=== PATIENT | female | born 1950 | race Caucasian/White ===

== ENCOUNTER 2025-03-02 10:32 | Inpatient (IN) ==
[2025-03-02 11:25] LABS: Hematocrit (blood only) 39.9 % (37.0-47.0); Hemoglobin 13.8 g/dl (12.0-16.0); Immature Granulocytes # (auto) 0.01 K/uL (0.01-0.20); Immature Granulocytes % (auto) 0.3 %; Mean Corpuscular Hemoglobin 33.6 pg (25.0-34.0); Mean Corpuscular Volume 97.1 fL (80.0-100.0); Platelet Count 90 K/uL (130-400); RDW Standard Deviation 54.4 fL (36.4-46.3); Red Blood Count 4.11 M/uL (4.20-5.40); White Blood Count 4.00 K/ul (4.8-10.8)
[2025-03-02 11:30] LABS: Appearance Urine Clear (Clear); Glucose Urine UA Negative (Negative)
[2025-03-02 11:45] LABS: Alanine Aminotransferase 25.0 U/L (7-52); Alkaline Phosphatase 106.0 U/L (34-104); Anion Gap 6.0 (3-11); Bilirubin,Total 1.5 mg/dl (0.2-1.0); Blood Urea Nitrogen 17.0 mg/dl (6-23); Calcium 9.4 mg/dl (8.6-10.3); Carbon Dioxide 28.0 mmol/L (21-32); Chloride 108.0 mmol/L (98-107); Creatinine Clr Calc Pharmacy 75.3 ml/min; Glucose 127.0 mg/dl (70-99(Fasting)); Lipase 43.0 U/L (11-82); Potassium 3.9 mmol/L (3.5-5.1); Sodium 142.0 mmol/L (136-145); Total Protein 7.0 gm/dl (6.0-8.3)
[2025-03-02 11:54] LABS: INR 1.1 (0.9-1.1); Partial Thromboplastin Time 30 Seconds (21-31); Prothrombin Time 11.7 Seconds (9.0-12.0)
--- NOTE | 2025-03-02 14:07 | CT Scan Report ---
CT head/brain wo con CLINICAL HISTORY: 74 years-old Female with dififculty walking. Acutely altered mental status TECHNIQUE: Multiple axial CT images of the head were obtained without contrast. A dose lowering tech nique was utilized adhering to the principles of ALARA. CT DOSE: 703.85 mGy.cm COMPARISON: 06/07/2022, 09/20/2015 FINDINGS: No acute intracranial hemorrhage, midline shift, intra-axial mass, hydrocephalus, territorial ischemi a or abnormal extra-axial collection. Patchy white matter hypodensities redemonstrated, likely repres enting chronic microvascular ischemic disease. Prominent CSF space versus arachnoid cyst is again not ed below the cerebellar tentorium at the midline. The calvarium is intact. Moderate mucoperiosteal thickening with slight loss of the maxillary sinuse s. The mastoid air cells are clear. IMPRESSION: No acute intracranial abnormality. ACT 112: Negative or not required by law. The above report was generated using voice recognition software. It may contain grammatical, syntax o r spelling errors. Electronically signed by: Amrik Smith M.D. 03/02/2025 2:05 PM
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
[2025-03-02] MEDS: LACTULOSE SYRUP 20 GM/30 ML UDC PO STA (15:23)
[2025-03-02] MEDS: OPTIRAY 320 100ml IV ONE (16:26)
--- NOTE | 2025-03-02 16:39 | CT Scan Report ---
EXAMINATION: CT of the abdomen and pelvis performed after the administration of IV contrast TECHNIQUE: Helical CT images from the lung bases through the symphysis pubis were obtained with contrast. Coronal and sagittal reformatted images were generated at a workstation for further assessment. Dose reduction techniques were achieved by using automatic exposure control and/or adjustment of mA and/or kV according to patient size and/or use of iterative reconstruction technique. COMPARISON: 06/07/2022 HISTORY: Abdominal pain FINDINGS: Lower chest: No consolidation. No pleural effusion or pneumothorax. Moderate coronary calcification is seen. Liver: Nodular contour of the liver with hypertrophy of the left and caudate lobes compatible with cirrhosis. The portal vein is enlarged, and there is recanalization with significant dilation of the periumbilical vein, which drains in to several varicosities draining into the right external iliac vein. No suspicious liver lesions. Portal veins appear patent. Gallbladder: Cholecystectomy. Spleen: Enlarged spleen measuring 17.4 cm. Pancreas: No suspicious pancreatic lesions. The pancreatic duct is not dilated. Adrenal glands: No adrenal nodules. Kidneys: No hydronephrosis or obstructing renal stones. Bladder / Pelvic organs: Zimmerman catheter in place decompressing the urinary bladder.. Bowel: No bowel obstruction. No abnormal bowel wall thickening. The appendix is unremarkable. Colonic stool burden is moderate to large. Lymph nodes: No retroperitoneal, mesenteric, or pelvic lymphadenopathy. Peritoneum / Retroperitoneum: No free fluid or air within the abdomen. Vessels: No infrarenal aortic aneurysm. Bones and soft tissues: No suspicious lesion in the bones. Fixation changes of the right femur. IMPRESSION: No acute intra-abdominal process. Moderate to large colonic stool suggesting constipation. Cirrhosis of the liver with evidence of portal hypertension as above. Electronically signed by Pablito Warren 03-02-2025 4:38 PM
--- NOTE | 2025-03-02 17:08 | Ultrasound Report ---
Clinical History: Swelling Technique: Venous ultrasound evaluation was performed utilizing grayscale, color Doppler and wave form evaluation. Images were also obtained with and without compression Findings: The bilateral common femoral, superficial femoral, popliteal, and visualized calf veins demonstrate normal anechoic lumens with full compressibility. Normal flow is seen on color Doppler images. Expected waveforms were produced with augmentation maneuvers Impression: No evidence of deep venous thrombosis Electronically signed by Migel Fontaine 03-02-2025 5:08 PM
[2025-03-02] MEDS ORDERED: POLYETHYLENE (MIRALAX) 17 GM PACK PO PRN (17:32)
[2025-03-02] MEDS ORDERED: MAGNESIUM HYDROXIDE SUSP 30 ML UDC PO PRN (17:32)
[2025-03-02] MEDS ORDERED: ONDANSETRON INJ 2 MG/ML 2 ML VIAL IV PRN (17:32)
[2025-03-02] MEDS ORDERED: GLUCAGON FOR INJ 1 MG VIAL SQ PRN (17:45)
[2025-03-02] MEDS ORDERED: GLUCOSE 40% GEL 15 GM TUBE PO PRN (17:45)
[2025-03-02] MEDS ORDERED: DEXTROSE 50% 50 ML SYRINGE IV PRN (17:45)
[2025-03-02] MEDS ORDERED: CARBOHYDRATES FOR HYPOGLYCEMIA PO PRN (17:45)
[2025-03-02] MEDS ORDERED: GLUCOSE 10 TAB/TUBE PO PRN (17:45)
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
[2025-03-02] MEDS: DICLOFENAC SOD 1% GEL 100 GM TUBE EXT SCH (20:31)
[2025-03-02] MEDS: DOCUSATE SODIUM 100 MG CAP PO SCH (20:34)
[2025-03-02] MEDS: CALCIUM 600MG + VIT D 400 IU TAB PO SCH (20:34)
[2025-03-02] MEDS: LACTULOSE SYRUP 20 GM/30 ML UDC PO SCH (20:35)
[2025-03-02] MEDS: AMMONIUM LACTATE 12% LOTION 225 GM BTL EXT SCH (20:37)
[2025-03-02] MEDS: INSULIN ASPART PER UNIT CHARGE SC SCH (20:38)
[2025-03-03] MEDS: LEVOTHYROXINE SODIUM 100 MCG TABLET PO SCH (05:55)
[2025-03-03 08:05] LABS: Hematocrit (blood only) 37.1 % (37.0-47.0); Hemoglobin 12.4 g/dl (12.0-16.0); Immature Granulocytes # (auto) 0.01 K/uL (0.01-0.20); Immature Granulocytes % (auto) 0.3 %; Mean Corpuscular Hemoglobin 33.1 pg (25.0-34.0); Mean Corpuscular Volume 98.9 fL (80.0-100.0); Platelet Count 73 K/uL (130-400); RDW Standard Deviation 55.8 fL (36.4-46.3); Red Blood Count 3.75 M/uL (4.20-5.40); White Blood Count 3.09 K/ul (4.8-10.8)
[2025-03-03] MEDS: MAGNESIUM CITRATE 296 ML/BTL PO STA (08:05)
[2025-03-03] MEDS: FLUTICASONE PROPIONATE NA SPR 16 GM BTL SCH (08:10)
[2025-03-03] MEDS: MONTELUKAST SODIUM 10 MG TABLET PO SCH (08:11)
[2025-03-03] MEDS: CHOLECALCIFEROL 25 MCG (1000 UNITS) TAB PO SCH (08:12)
[2025-03-03] MEDS: ROSUVASTATIN CALCIUM 10 MG TAB PO SCH (08:12)
[2025-03-03] MEDS: ATENOLOL 50 MG TABLET PO SCH (08:13)
[2025-03-03 08:27] LABS: Alanine Aminotransferase 23.0 U/L (7-52); Albumin Globulin Ratio 1.3 (0.9-2); Alkaline Phosphatase 80.0 U/L (34-104); Anion Gap 5.0 (3-11); Bilirubin,Total 1.4 mg/dl (0.2-1.0); Blood Urea Nitrogen 14.0 mg/dl (6-23); Calcium 8.8 mg/dl (8.6-10.3); Carbon Dioxide 29.0 mmol/L (21-32); Chloride 109.0 mmol/L (98-107); Creatinine Clr Calc Pharmacy 85.7 ml/min; Globulin 2.6 gm/dl (2.5-4.0); Glucose 100.0 mg/dl (70-99(Fasting)); Magnesium 1.7 mg/dl (1.7-2.4); Potassium 3.6 mmol/L (3.5-5.1); Sodium 143.0 mmol/L (136-145); Total Protein 5.9 gm/dl (6.0-8.3)
[2025-03-03 08:42] LABS: Thyroid Stimulating Hormone 1.171 uIu/ml (0.300-4.500)
--- NOTE | 2025-03-03 09:00 | Urology Consultation ---
Date of Consultation March 03, 2025 Assessment & Plan (1) Acute urinary retention: Patient admitted to the hospitalist service. Her ua was negative and ct scan was negative for hydronephrosis or stones. She does have constipation which is likely the source of her urinary retention. No urological surgery/intervention planned at this time. Continue management of constipation and mobilization per hospitalist service. Once she does begin having bowel movements it is reasonable to remove her markham catheter and try a void trial. Please reach out to urology if any further issues after catheter removal. History of Present Illness Attending Physician: Ralph Mora MD History of Present Illness Wendy is a 74 year old patient admitted last night to the hospitalist service with urinary retention, constipation, and generalized weakness. She states that ever since she underwent surgery for her femur fracture she has had issues with constipation. She came to the ER yesterday due to not having a bowel movement or urinating for 2 days. She did have some abdominal pain but that has been relieved with placement of the markham catheter. Over 400ml of urine drained yesterday with placement of the catheter. Denies any previous urinary symptoms such as hematuria or dysuria, denies h/o kidney stones. Allergies Allergy/AdvReac Type Severity Reaction Status Date / Time Hydantoins Allergy Unknown Unknown - Unverified 03/02/25 14:32 On file w/ [facility] phenytoin Allergy Unknown fever and Verified 03/02/25 14:32 rash indomethacin AdvReac Unknown CHF Verified 03/02/25 14:32 Home Medications Medication Instructions Recorded Confirmed Type calcium 600 mg (as 1 cap PO HS 06/07/22 03/02/25 History carbonate)-vitamin D3 5 mcg (200 unit) capsule (Calcium 600 + D(3)) cholecalciferol (vitamin D3) 25 25 mcg PO DAILY 06/07/22 03/02/25 History mcg (1,000 unit) tablet (Vitamin D3) diclofenac sodium 1 % topical gel 1 ea topical BID 06/07/22 03/02/25 History fluticasone propionate 50 2 spray intranasal DAILY 06/07/22 03/02/25 History mcg/actuation nasal spray,suspension levothyroxine 100 mcg tablet 100 mcg PO DAILYBB 06/07/22 03/02/25 History montelukast 10 mg tablet 10 mg PO QAM 06/07/22 03/02/25 History allopurinol 100 mg tablet 200 mg PO BID 02/12/25 03/02/25 History naproxen 250 mg tablet 250 mg PO BID PRN Pain 02/12/25 03/02/25 History rosuvastatin 10 mg tablet 10 mg PO QAM 02/12/25 03/02/25 History semaglutide 7 mg tablet (Rybelsus) 7 mg PO DAILYBB 02/12/25 03/02/25 History atenolol 100 mg tablet 150 mg PO QAM 03/02/25 03/02/25 History pantoprazole 40 mg tablet,delayed 40 mg PO DAILYBB 03/02/25 03/02/25 History release Patient History Social History Smoking Status: Never smoker Hx Alcohol Use: No Hx Substance Use: No Preferred Language: Macedonian Communication Ability: Effective Physical Therapist Center Manager Required: No Beliefs That Will Affect Care: None Current Living Situation: Alone Feels Safe at Home: Yes Assistive Devices: Walker Physical Exam Constitutional: no acute distress and not ill appearing Respiratory: normal respiratory effort; no respiratory distress Gastrointestinal (Abdomen): Inspection/Auscultation: abdomen not distended Percussion/Palpation: abdomen soft; abdomen nontender and no guarding Psychiatric: A+Ox3, euthymic affect Genitourinary: Catheter draining clear yellow urine at this time Results & Data Vital Signs (Past 12 Hours) Vital Signs Temp Pulse Resp BP Pulse Ox O2 Del Method 03/03/25 07:56 36.4 C L 81 18 125/74 97 Room Air PG Care Time/CCT Total # of Minutes Spent Total Time Spent with Patient: Total time spent is greater than 50% in coordination of care (as documented) at patient's floor/unit and/or counseling patient: Coding Level of Care Code 09160 IN/OBS CONSULT LVL 3,45M Diagnoses Acute urinary retention R33.8
[2025-03-03 09:12] LABS: Hemoglobin A1C 5.4 % (4.5-5.6)
--- NOTE | 2025-03-03 12:35 | Gastrointestinal Consultation ---
Date of Consultation March 03, 2025 Assessment & Plan (1) Cirrhosis: -Will need outpatient GI/Hepatology eval for her cirrhosis in order to arrange variceal screening, HCC surveillance, and further labs to work-up the underlying etiology of her cirrhosis. -Treat constipation. Would ensure she is moving her bowels 3-4 times daily. She was receiving a tap water enema as ordered by primary team at the time of my visit. Can continue Lactulose as ordered presently. As I'm meeting this patient for the first time, I do not feel like she is significantly confused. She does have a baseline intellectual disability. Could consider adding Xifaxan 550 mg BID on d/c. -Will check infectious hepatitis and autoimmune labs while admitted -Continue to monitor LFTs -2 gm Na restricted diet -Avoid substances that are harmful to the liver. Supervising Physician Co-Signing Physician Notes I saw and examined this patient with our nurse practitioner and agree with her assessment and plan. Suspect functional cause for constipation aggravated by secondary life possible decreased fluid intake. CT scan shows large volume stool in the colon. Agree with present bowel regimen. Had a response earlier today with large defecation. Call if any issues occur over the weekend. History of Present Illness Reason for Consultation: Elevated ammonia, cirrhosis Attending Physician: Ralph Mora MD History of Present Illness Patient is a 74 yo female with PMH of intellectual disability, osteoporosis, COPD, HTN, HLD, DM2, hypothyroidism, depression, and cirrhosis with evidence of portal HTN and thrombocytopenia, GERD, migraines who presented to [facility] due to difficulty urinating x 2 days. She notes nausea and 1 week of constipation. She has a history but it does not appear that she is currently following with anyone actively for this. She has no previous diagnosis of HE. She had an ammonia level checked during this admission and it was slightly elevated. Plt count 73. T bili 1.4. AST/ALT/alk phos wnl. TSH wnl. INR 1.1. CT abd/pelvis at the time of admission shows cirrhosis with portal hypertension. She denies alcohol use. She denies any known family history of liver disease. No IVDA. No jaundice or abdominal pain. No unusual bleeding per her reports. MELD 9. Allergies Allergy/AdvReac Type Severity Reaction Status Date / Time Hydantoins Allergy Unknown Unknown - Unverified 03/02/25 14:32 On file w/ [facility] phenytoin Allergy Unknown fever and Verified 03/02/25 14:32 rash indomethacin AdvReac Unknown CHF Verified 03/02/25 14:32 Home Medications Medication Instructions Recorded Confirmed Type calcium 600 mg (as 1 cap PO HS 06/07/22 03/02/25 History carbonate)-vitamin D3 5 mcg (200 unit) capsule (Calcium 600 + D(3)) cholecalciferol (vitamin D3) 25 25 mcg PO DAILY 06/07/22 03/02/25 History mcg (1,000 unit) tablet (Vitamin D3) diclofenac sodium 1 % topical gel 1 ea topical BID 06/07/22 03/02/25 History fluticasone propionate 50 2 spray intranasal DAILY 06/07/22 03/02/25 History mcg/actuation nasal spray,suspension levothyroxine 100 mcg tablet 100 mcg PO DAILYBB 06/07/22 03/02/25 History montelukast 10 mg tablet 10 mg PO QAM 06/07/22 03/02/25 History allopurinol 100 mg tablet 200 mg PO BID 02/12/25 03/02/25 History naproxen 250 mg tablet 250 mg PO BID PRN Pain 02/12/25 03/02/25 History rosuvastatin 10 mg tablet 10 mg PO QAM 02/12/25 03/02/25 History semaglutide 7 mg tablet (Rybelsus) 7 mg PO DAILYBB 02/12/25 03/02/25 History atenolol 100 mg tablet 150 mg PO QAM 03/02/25 03/02/25 History pantoprazole 40 mg tablet,delayed 40 mg PO DAILYBB 03/02/25 03/02/25 History release Patient History Social History Smoking Status: Never smoker Hx Alcohol Use: No Hx Substance Use: No Preferred Language: Irish Communication Ability: Effective Coremaking Machine Setter Required: No Beliefs That Will Affect Care: None Current Living Situation: Alone Feels Safe at Home: Yes Assistive Devices: Walker Review of Systems Constitutional: no fever and no chills Cardiovascular: no chest pain Gastrointestinal: + constipation; no abdominal pain, no bl ood in stools and no melena Physical Exam Constitutional: well developed Respiratory: normal respiratory effort Cardiovascular: Rate/Rhythm: regular rate Gastrointestinal (Abdomen): normal bowel sounds, soft, nontender, no hepatosplenomegaly Psychiatric: Orientation: alert and oriented x 3 Results & Data Vital Signs (Past 12 Hours) Vital Signs Temp Pulse Resp BP Pulse Ox O2 Del Method 03/03/25 07:56 36.4 C L 81 18 125/74 97 Room Air PG Care Time/CCT Total # of Minutes Spent Total Time Spent with Patient: Total time spent is greater than 50% in coordination of care (as documented) at patient's floor/unit and/or counseling patient: Coding Level of Care Code 86069 INT INP/OBS CARE 3/75MIN Diagnoses Hepatic cirrhosis, unspecified hepatic cirrhosis type, unspecified whether ascites present K74.60 Ascites presence: unspecified Hepatic cirrhosis type: unspecified hepatic cirrhosis (1) Cirrhosis Ascites presence: unspecified Hepatic cirrhosis type: unspecified hepatic cirrhosis Qualified Code(s): K74.60 - Unspecified cirrhosis of liver
--- NOTE | 2025-03-03 12:38 | Hospitalist Progress Note ---
Date of Service March 03, 2025 Assessment & Plan (1) Acute urinary retention: (2) Constipation: (3) Generalized weakness: (4) Cirrhosis: Plan Patient is a 74-year-old female with past medical history significant for intellectual disability, osteoporosis, mechanical fall with right intertrochanteric fracture s/p IM femoral nail placement in May 2022, acute blood loss anemia, COPD/asthma, HTN, HLD, DM type II with peripheral neuropathy, hypothyroidism, depression, cirrhosis with evidence of portal HTN and thrombocytopenia, GERD, migraines and other problems listed below who presented to the ED via EMS with c/c of not being able to urinate or have a bowel movement x 2 days and generalized weakness. #Acute urinary retention Patient presented with acute urinary retention; likely secondary to constipation Status post Zimmerman catheter Plan to do a trial of void after patient has regular bowel movements #Constipation #Cirrhosis w/ portal HTN No BM x 2 days Ammonia slightly elevated at 82 CT abdomen pelvis shows moderate to large colonic stool suggestive of constipation. Constipation Could be related with use of semaglutide Plan for tapwater enema, magnesium citrate, lactulose and MiraLAX Will plan to discharge her on lactulose; titrate bowel movement to 3 times per day. #Generalized weakness Poss related to overall physical deconditioning Obtain PT/OT evals #BLE edema Venous duplex does not show DVT #Gout Continue allopurinol #HTN Continue atenolol w/ hold parameters Routine BP monitoring #COPD/asthma No s/sx of acute exacerbation Continue Singulair #GERD Continue PPI #HLD Continue statin #DMII Hold home regimen SSI regimen while inpt DVT Prophylaxis: SCDs/TEDs for now PCP: Juan Heck MD Please note the above document was generated using voice recognition software. It may contain grammatical, syntax or spelling errors. Any formal questions or concerns about the content, text or information contained within the body of this dictation should be directly addressed to the provider for clarification Admission and Anticipated Discharge Date Admission Date: March 02, 2025 Subjective Patient seen and examined at bedside. She reports that she continues to have constipation; denies any abdominal pain at this time. Zimmerman catheter in place with drainage of clear urine. Review of Systems Review of Systems: All systems reviewed & are unremarkable except as noted in Subjective Physical Exam Physical Exam: Constitutional: Awake, alert oriented x 3; not in distress. Respiratory: Bilateral vesicular breath sound Cardiovascular: RRR, no murmur, no edema Vessels: no JVD or carotid bruit Chest: normal inspection of chest Abdomen: Soft, nontender. Musculoskeletal: no cyanosis or clubbing, extremities motor strength 5/5 Skin: no rashes, warm and dry normal turgor Neurologic: PERRL, EOMI, accommodation nl, no face palsy, no dysarthria CN's II- XI intact bilaterally and moves all extremities Psychiatric: A+Ox3, euthymic affect Results & Data Results & Data Vital Signs (Past 12 Hours) Vital Signs Temp Pulse Resp BP Pulse Ox O2 Del Method 03/03/25 07:56 36.4 C L 81 18 125/74 97 Room Air (2) Constipation Constipation type: unspecified constipation type Qualified Code(s): K59.00 - Constipation, unspecified (4) Cirrhosis Hepatic cirrhosis type: unspecified hepatic cirrhosis Ascites presence: unspecified Qualified Code(s): K74.60 - Unspecified cirrhosis of liver
[2025-03-03] MEDS: POLYETHYLENE (MIRALAX) 17 GM PACK PO SCH (13:29)
[2025-03-03 14:19] LABS: Hep B Surface Ag with confirm Negative (Negative)
[2025-03-03 14:25] LABS: Hep C Ab Rflx HepCQuant RNA Negative (Negative)
[2025-03-03] MEDS: ACETAMINOPHEN 325 MG TAB PO PRN (20:46)
[2025-03-04] MEDS: MELATONIN 3 MG TAB PO PRN (01:58)
[2025-03-04] MEDS: MAGNESIUM CITRATE 296 ML/BTL PO SCH (08:23)
--- NOTE | 2025-03-04 13:18 | Hospitalist Progress Note ---
Date of Service March 04, 2025 Assessment & Plan (1) Acute urinary retention: (2) Constipation: (3) Generalized weakness: (4) Cirrhosis: Plan Patient is a 74-year-old female with past medical history significant for intellectual disability, osteoporosis, mechanical fall with right intertrochanteric fracture s/p IM femoral nail placement in May 2022, acute blood loss anemia, COPD/asthma, HTN, HLD, DM type II with peripheral neuropathy, hypothyroidism, depression, cirrhosis with evidence of portal HTN and thrombocytopenia, GERD, migraines and other problems listed below who presented to the ED via EMS with c/c of not being able to urinate or have a bowel movement x 2 days and generalized weakness. #Acute urinary retention Patient presented with acute urinary retention; likely secondary to constipation Status post Zimmerman catheter Plan to do a trial of void after patient has regular bowel movements #Constipation #Cirrhosis w/ portal HTN No BM x 2 days on admission Ammonia slightly elevated at 82 CT abdomen pelvis shows moderate to large colonic stool suggestive of constipation. Constipation Could be related with use of semaglutide Continue on tapwater enema, magnesium citrate, lactulose and MiraLAX Will plan to discharge her on lactulose; titrate bowel movement to 3 times per day. #Generalized weakness Poss related to overall physical deconditioning Pt/Ot recommend rehab #BLE edema Venous duplex does not show DVT #Gout Continue allopurinol #HTN Continue atenolol w/ hold parameters Routine BP monitoring #COPD/asthma No s/sx of acute exacerbation Continue Singulair #GERD Continue PPI #HLD Continue statin #DMII Hold home regimen SSI regimen while inpt DVT Prophylaxis: SCDs/TEDs for now PCP: Juan Heck MD Please note the above document was generated using voice recognition software. It may contain grammatical, syntax or spelling errors. Any formal questions or concerns about the content, text or information contained within the body of this dictation should be directly addressed to the provider for clarification Admission and Anticipated Discharge Date Admission Date: March 02, 2025 Subjective Patient seen and examined at bedside. She is lying in the bed comfortably; tolerating diet. No bowel movement since a.m. Review of Systems Review of Systems: All systems reviewed & are unremarkable except as noted in Subjective Physical Exam Physical Exam: Constitutional: Awake, alert oriented x 3; not in distress. Respiratory: Bilateral vesicular breath sound Cardiovascular: RRR, no murmur, no edema Vessels: no JVD or carotid bruit Chest: normal inspection of chest Abdomen: Soft, nontender. Musculoskeletal: no cyanosis or clubbing, extremities motor strength 5/5 Skin: no rashes, warm and dry normal turgor Neurologic: PERRL, EOMI, accommodation nl, no face palsy, no dysarthria CN's II- XI intact bilaterally and moves all extremities Psychiatric: A+Ox3, euthymic affect Results & Data Results & Data Vital Signs (Past 12 Hours) Vital Signs Temp Pulse Resp BP Pulse Ox O2 Del Method 03/04/25 08:00 Room Air 03/04/25 07:38 36.5 C 69 18 121/75 95 Room Air (2) Constipation Constipation type: unspecified constipation type Qualified Code(s): K59.00 - Constipation, unspecified (4) Cirrhosis Hepatic cirrhosis type: unspecified hepatic cirrhosis Ascites presence: unspecified Qualified Code(s): K74.60 - Unspecified cirrhosis of liver
--- NOTE | 2025-03-05 10:03 | Discharge Summary ---
Date of Service March 05, 2025 Admission HPI Per Admitting Provider Patient is a 74-year-old female with past medical history significant for intellectual disability, osteoporosis, mechanical fall with right intertrochanteric fracture s/p IM femoral nail placement in May 2022, acute blood loss anemia, COPD/asthma, HTN, HLD, DM type II with peripheral neuropathy, hypothyroidism, depression, cirrhosis with evidence of portal HTN and thrombocytopenia, GERD, migraines and other problems listed below who presented to the ED via EMS with c/c of not being able to urinate or have a bowel movement x 2 days. History obtained from the patient, discussion with ED provider and associated chart review. Patient seen at bedside in the ED with Dr. Silva. Patient has been feeling nauseated since Thursday with a decline in appetite. Also having some pain across her lower abdominal region. No episodes of vomiting. Unable to urinate or have a BM for the past 2 days. Also has been feeling weaker. No reported fevers. History of cirrhosis. Does not follow with an outpatient public health specialist. Not currently on lactulose, diuretics or Xifaxan as an outpatient. Currently living by herself and managing her own medications. Reports she is "very independent." Does not drive. Has a case manager in [place] whom routinely checks on her. Zimmerman catheter placed in the ED. Principal Diagnosis Acute urinary retention Constipation Discharge Exam Constitutional: Awake, alert oriented x 3; not in distress. Respiratory: Bilateral vesicular breath sound Cardiovascular: RRR, no murmur, no edema Vessels: no JVD or carotid bruit Chest: normal inspection of chest Abdomen: Soft, nontender. Musculoskeletal: no cyanosis or clubbing, extremities motor strength 5/5 Skin: no rashes, warm and dry normal turgor Neurologic: PERRL, EOMI, accommodation nl, no face palsy, no dysarthria CN's II- XI intact bilaterally and moves all extremities Psychiatric: A+Ox3, euthymic affect Discharge Data Allergies Allergy/AdvReac Type Severity Reaction Status Date / Time Hydantoins Allergy Unknown Unknown - Unverified 03/02/25 14:32 On file w/ [facility] phenytoin Allergy Unknown fever and Verified 03/02/25 14:32 rash indomethacin AdvReac Unknown CHF Verified 03/02/25 14:32 Consultations 03/02/25 15:03 ED Decision to Admit Stat 03/02/25 18:57 Consult Gastroenterology Routine Consult Urology Routine Ordered Studies 03/02/25 13:03 CT head/brain wo con Stat 03/02/25 15:53 CT abd pelvis IV con only Urgent US venous doppler LE Urgent Hospital Course (1) Acute urinary retention: (2) Constipation: (3) Generalized weakness: (4) Cirrhosis: Plan Patient is a 74-year-old female with past medical history significant for intellectual disability, osteoporosis, mechanical fall with right intertrochanteric fracture s/p IM femoral nail placement in May 2022, acute blood loss anemia, COPD/asthma, HTN, HLD, DM type II with peripheral neuropathy, hypothyroidism, depression, cirrhosis with evidence of portal HTN and thrombocytopenia, GERD, migraines and other problems listed below who presented to the ED via EMS with c/c of not being able to urinate or have a bowel movement x 2 days and generalized weakness. #Acute urinary retention Patient presented with acute urinary retention; likely secondary to constipation Status post Zimmerman catheter; removed Trial of void successful prior to discharge #Constipation #Cirrhosis w/ portal HTN No BM x 2 days on admission Ammonia slightly elevated at 82 CT abdomen pelvis shows moderate to large colonic stool suggestive of constipation. Constipation Could be related with use of semaglutide Patient was placed on bowel regimen with multiple bowel movements during the hospitalization. She was discharged on lactulose and MiraLAX. #Generalized weakness Poss related to overall physical deconditioning Pt/Ot recommend rehab; discharged to [facility] Please note the above document was generated using voice recognition software. It may contain grammatical, syntax or spelling errors. Any formal questions or concerns about the content, text or information contained within the body of this dictation should be directly addressed to the provider for clarification Total Time Total Time Spent Total Time Spent (In Minutes): 45 Total Time Includes: Examination of the Patient, Discharge Planning, Medication Reconciliation, Communication With Other Providers and Other Discharge Plan Discharge Items Patient Disposition: Transfer Inpatient Rehab Fac Reason For Visit: ACUTE URINARY RETENTION, PHYSICAL DECONDITIONING Discharge Diagnosis: #Acute urinary retention # constipation Condition on Discharge: Good Activity: Resume your previous activity Non-emergency contact: Primary Care Provider Call non-emergency contact if: you have any medication questions and your symptoms worsen Follow-up/Referrals: Juan Heck MD [Primary Care Provider] - (Date & Time 03/09/2025 3:20 PM Provider: Gill Rhodes PA-C [facility] ) Diet: Regular Addtl Attending Provider Instructions: You were admitted to hospital with constipation and urinary retention. You are started on bowel regimen with lactulose and Miralax. Please take them as prescribed to have regular BM Pending Studies at Discharge: No Stand-Alone Forms: My [facility] AWID, Smoking Cessation Skilled Items Patient informed of condition?: Yes DNR: No Discharge Level of Care: Acute rehab Communicable Disease: No Discharge Prognosis: Stable Lines: None Urinary Catheter: No Medications and DC Order Prescriptions: New polyethylene glycol 3350 [Miralax] 17 gram Powder In Packet 17 g PO DAILY Qty: 30 0RF lactulose 10 gram/15 mL Solution 20 g PO TID Qty: 946 0RF Xifaxan 550 mg tablet 550 mg PO BID Qty: 60 0RF Continued levothyroxine 100 mcg tablet 100 mcg PO DAILYBB Rx Instructions: take at least 30 minutes prior to breakfast or other meds montelukast 10 mg tablet 10 mg PO QAM fluticasone propionate 50 mcg/actuation spray,suspension 2 spray INTRANASAL DAILY calcium carbonate-vitamin D3 [Calcium 600 + D(3)] 600 mg-5 mcg (200 unit) Capsule 1 cap PO HS diclofenac sodium 1 % gel 1 ea TOPICAL BID Rx Instructions: apply to arms and shoulders for arhtritis cholecalciferol (vitamin D3) [Vitamin D3] 25 mcg (1,000 unit) Tablet 25 mcg PO DAILY naproxen 250 mg Tablet 250 mg PO BID PRN (Reason: Pain) allopurinol 100 mg tablet 200 mg PO BID rosuvastatin 10 mg tablet 10 mg PO QAM Rybelsus 7 mg tablet 7 mg PO DAILYBB atenolol 100 mg tablet 150 mg PO QAM pantoprazole 40 mg tablet,delayed release (DR/EC) 40 mg PO DAILYBB Discharge Orders: Discharge Order (Routine); Ordered 03/05/25 Ordered By: Ralph Guillermo/Other Patient Handouts: Managing Type 2 Diabetes Admission Data Admit Date/Time: 03/02/25 15:17 Attending Provider: Ralph Mora Admit Provider: Klaus Silva Primary Care Provider: Juan Heck Other Providers: [facility]; Klaus Silva; Vijay Guzmán I; Pablito Helm; Sowmya Agrawal; Victorino Plascencia; Trish Goldstein; Lazaro Hannah; Adriana Weir; Carlos Gordon; Juan Casas; Javier Connelly; Jose Carr Other Interventions: Discharge Summary Assessment (RN) Last Done: 03/05/25 10:14
[2025-03-08 00:12] LABS: Anti Mitochondrial Antibody NEGATIVE (NEGATIVE); Anti Nuclear Antibody Screen NEGATIVE (NEGATIVE); Hepatitis A Antibody IgM NON-REACTIVE (NON-REACTIVE); Hepatitis B Core Antibody IgM NON-REACTIVE (NON-REACTIVE)
== END 2025-03-05 11:00 | DRG 696 ==
LOC: ED 10:32 → 3N 15:17 → SUATTDRO 15:17 → 3N 16:33

== ENCOUNTER 2025-05-26 19:06 | Inpatient (IN) ==
[2025-05-26] MEDS: SODIUM CHLORIDE 0.9% 1,000 ML IV STA (19:45)
[2025-05-26 20:04] LABS: Hematocrit (blood only) 37.1 % (37.0-47.0); Hemoglobin 12.7 g/dl (12.0-16.0); Immature Granulocytes # (auto) 0.00 K/uL (0.01-0.20); Immature Granulocytes % (auto) 0.0 %; Mean Corpuscular Hemoglobin 32.8 pg (25.0-34.0); Mean Corpuscular Volume 95.9 fL (80.0-100.0); Platelet Count 69 K/uL (130-400); RDW Standard Deviation 50.5 fL (36.4-46.3); Red Blood Count 3.87 M/uL (4.20-5.40); White Blood Count 3.55 K/ul (4.8-10.8)
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
[2025-05-26 20:20] LABS: Alanine Aminotransferase 24.0 U/L (7-52); Albumin Globulin Ratio 1.1 (0.9-2); Albumin Level 3.3 gm/dl (3.4-5.0); Alkaline Phosphatase 81.0 U/L (34-104); Anion Gap 6.0 (3-11); Bilirubin,Total 1.5 mg/dl (0.2-1.0); Blood Urea Nitrogen 20.0 mg/dl (6-23); Calcium 9.3 mg/dl (8.6-10.3); Carbon Dioxide 26.0 mmol/L (21-32); Chloride 111.0 mmol/L (98-107); Creatinine Clr Calc Pharmacy 73.3 ml/min; Globulin 2.9 gm/dl (2.5-4.0); Glucose 114.0 mg/dl (70-99(Fasting)); Lipase 63.0 U/L (11-82); Potassium 3.8 mmol/L (3.5-5.1); Sodium 143.0 mmol/L (136-145); Total Protein 6.2 gm/dl (6.0-8.3)
--- NOTE | 2025-05-26 22:31 | CT Scan Report ---
Exam(s): CT ABDOMEN + PELVIS Without Contrast EXAM: CT Abdomen and Pelvis Without Intravenous Contrast CLINICAL HISTORY: Reason for exam: SBO, obstruction. TECHNIQUE: Axial computed tomography images of the abdomen and pelvis without intravenous contrast. CTDI is 28 mGy and DLP is 1456 mGy-cm. Automated exposure control was utilized for the study. A dose lowering technique was utilized adhering to the principles of ALARA. COMPARISON: 04/23/2025 FINDINGS: Lung bases are clear. Gallbladder is surgically absent. There is no biliary dilatation. There is stranding around the head of the pancreas which is nonspecific. Liver appears cirrhotic. There are stigmata of portal hypertension including recanalized umbilical vein, abdominal varices, and splenomegaly. Adrenal glands and kidneys are normal. There is mild atherosclerosis without aortic aneurysm. There is no free air or significant ascites. Uterus is surgically absent. Urinary bladder is normal. There is no bowel obstruction or bowel inflammatory change. Appendix is normal. Bones are demineralized. There has been prior ORIF of the right femur. There is a chronic L3 superior endplate compression fracture and age- related degenerative changes of the lumbar spine. There are no acute osseous findings. IMPRESSION: 1. No evidence of small-bowel obstruction. 2. Cirrhosis and stigmata of portal hypertension. 3. Stranding around the head of the pancreas. This could be secondary to portal hypertension, but correlation with serum lipase is recommended to assess for pancreatitis. Electronically signed by: Augusta Lopez M.D. 05/26/25 22:30 PM
[2025-05-26 22:53] LABS: Appearance Urine Clear (Clear); Bacteria Urine Automated 1+ (None Seen); Cast Urine Automated 0-2 /lpf (0-2); Epithelial Cell Urine Auto 0-2 /hpf (0-2); Glucose Urine UA Negative (Negative); Starch Talc Urine Present (None Prsent); WBC Urine Automated 0-5 /hpf (0-5)
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
[2025-05-27] MEDS: LACTULOSE SYRUP 20 GM/30 ML UDC PO ONE ×2 (00:26→04:05)
[2025-05-27] MEDS: DOCUSATE SODIUM/SENNA 50/8.6MG TAB PO SCH (00:26)
[2025-05-27] MEDS: METOPROLOL TARTRATE 1 MG/ML VIAL IV STA (01:21)
[2025-05-27] MEDS: MAGNESIUM SULFATE / D5W 1 GM/100 ML BAG IV ONE (01:38)
[2025-05-27 01:47] LABS: Base Excess VBG 0.5 mEq/L; HCO3 VBG 25 mmol/L; Oxygen Saturation VBG 93.3 %; PCO2 VBG 37 mmHg (38-50); PO2 VBG 65 mmHg; pH VBG 7.43 (7.36-7.41)
--- NOTE | 2025-05-27 01:57 | CT Scan Report ---
EXAM: CT head/brain wo con CLINICAL HISTORY: ams, dysarthria. TECHNIQUE: Axial non-contrast CT scan of the brain was performed from the skull base to the high parietal region. One of the following dose reduction techniques was utilized for this exam: automated exposure control, adjustment of the mA and/or kV according to patient size, or use of iterative reconstruction. COMPARISON: 04/23/2025 CT. FINDINGS: Brain Parenchyma: There are ill-defined iso- to hypodense areas in the subcortical and periventricular white matter bilaterally, representing chronic microvascular ischemic changes. The remainder of the visualized brain parenchyma shows a normal appearance. No intracerebral or extra-axial hematoma. Ventricular System: Prominent ventricular system. Subarachnoid Spaces: The cortical sulci and basal cisterns are prominent, consistent with senile changes. Cerebellum and Brainstem: No masses, lesions, or areas of abnormal density. Orbits: Normal appearance of the globes, optic nerves, and extraocular muscles. No evidence of orbital masses or abnormal density. Visualized Paranasal Sinuses: Mild mucosal thickening in the bilateral maxillary sinuses. Mild right-sided nasal septal deviation. Mastoid Air Cells: Clear mastoid air cells. Skull and Soft Tissue: Normal skull morphology. IMPRESSION: 1. No acute abnormality detected on plain CT head. 2. Chronic microvascular ischemic changes and senile cortical atrophy. 3. No significant interval changes since the previous study. Electronically signed by Miguel Ángel Wooten 05-27-2025 01:56 AM
[2025-05-27] MEDS: ACETAMINOPHEN 500 MG TAB PO PRN (04:05)
[2025-05-27] MEDS ORDERED: GLUCAGON FOR INJ 1 MG VIAL SQ PRN (04:55)
[2025-05-27] MEDS ORDERED: GLUCOSE 10 TAB/TUBE PO PRN (04:55)
[2025-05-27] MEDS ORDERED: GLUCOSE 40% GEL 15 GM TUBE PO PRN (04:55)
[2025-05-27] MEDS ORDERED: CARBOHYDRATES FOR HYPOGLYCEMIA PO PRN (04:55)
[2025-05-27] MEDS ORDERED: DEXTROSE 50% 50 ML SYRINGE IV PRN (04:55)
[2025-05-27] MEDS: LEVOTHYROXINE SODIUM 100 MCG TABLET PO SCH (05:50)
[2025-05-27] MEDS: ATENOLOL 50 MG TABLET PO ONE (06:33)
[2025-05-27] MEDS: POTASSIUM CHLORIDE CRTAB 20 MEQ TABCR PO STA (06:33)
[2025-05-27] MEDS: INSULIN ASPART PER UNIT CHARGE SC SCH (06:41)
[2025-05-27 06:53] LABS: Hematocrit (blood only) 36.9 % (37.0-47.0); Hemoglobin 12.9 g/dl (12.0-16.0); Immature Granulocytes # (auto) 0.01 K/uL (0.01-0.20); Immature Granulocytes % (auto) 0.3 %; Mean Corpuscular Hemoglobin 34.0 pg (25.0-34.0); Mean Corpuscular Volume 97.4 fL (80.0-100.0); Platelet Count 71 K/uL (130-400); RDW Standard Deviation 50.1 fL (36.4-46.3); Red Blood Count 3.79 M/uL (4.20-5.40); White Blood Count 2.98 K/ul (4.8-10.8)
[2025-05-27 07:14] LABS: Alanine Aminotransferase 27.0 U/L (7-52); Albumin Globulin Ratio 1.3 (0.9-2); Albumin Level 3.3 gm/dl (3.4-5.0); Alkaline Phosphatase 71.0 U/L (34-104); Anion Gap 5.0 (3-11); Bilirubin,Total 1.4 mg/dl (0.2-1.0); Blood Urea Nitrogen 14.0 mg/dl (6-23); Calcium 8.9 mg/dl (8.6-10.3); Carbon Dioxide 26.0 mmol/L (21-32); Chloride 114.0 mmol/L (98-107); Creatinine Clr Calc Pharmacy 88.8 ml/min; Globulin 2.6 gm/dl (2.5-4.0); Glucose 116.0 mg/dl (70-99(Fasting)); Potassium 3.8 mmol/L (3.5-5.1); Sodium 145.0 mmol/L (136-145); Total Protein 5.9 gm/dl (6.0-8.3)
[2025-05-27] MEDS: FLUTICASONE PROPIONATE NA SPR 16 GM BTL SCH (08:22)
[2025-05-27] MEDS: LACTULOSE SYRUP 20 GM/30 ML UDC PO SCH (08:22)
[2025-05-27] MEDS: FUROSEMIDE 20 MG TAB PO SCH (08:23)
[2025-05-27] MEDS: POLYETHYLENE (MIRALAX) 17 GM PACK PO SCH (08:23)
[2025-05-27] MEDS: ROSUVASTATIN CALCIUM 10 MG TAB PO SCH (08:23)
[2025-05-27] MEDS: MONTELUKAST SODIUM 10 MG TABLET PO SCH (08:23)
--- NOTE | 2025-05-27 08:39 | XRay Report ---
EXAM: XR chest 1V portable CLINICAL HISTORY: low o2 TECHNIQUE: X-ray images of the chest were obtained in a single frontal projection. COMPARISON: Prior X-ray dated 04/23/2025 was used for comparison. FINDINGS: Pulmonary Parenchyma: There is no evidence of consolidation, collapse, or focal opacities. No pulmonary nodules are identified. There is no evidence of pleural effusion or pleural thickening. Heart and Mediastinum: Bilateral hilar prominence and prominent bronchovascular markings are present, which could be due to pulmonary congestion. The heart size and shape are normal. There is no mediastinal widening or masses. No hilar or mediastinal lymphadenopathy is identified. Bony Thorax: The bony thorax appears intact, without fractures or deformities. Degenerative changes are present in the bilateral shoulder joints. Soft Tissues: The soft tissues overlying the chest wall are unremarkable. IMPRESSION: 1. There is no evidence of consolidation, collapse, or focal opacities. 2. Bilateral hilar prominence and prominent bronchovascular markings are present, which could be due to pulmonary congestion. 3. No interval changes. Electronically signed by Miguel Ángel Wooten 05-27-2025 08:39 AM
[2025-05-27] MEDS ORDERED: LACTULOSE SYRUP 20 GM/30 ML UDC PO SCH (09:00)
[2025-05-27] MEDS ORDERED: ATENOLOL 50 MG TABLET PO SCH (09:00)
--- NOTE | 2025-05-27 10:34 | Hospitalist Progress Note ---
Date of Service May 27, 2025 Assessment & Plan (1) Encephalopathy: Plan: Acute hepatic encephalopathy Leukopenia, thrombocytopenia due to liver disease Noncompliance H/O NAFLD Cirrhosis Constipation--resolved -- CT head:No acute abnormality detected on plain CT head. Chronic microvascular ischemic changes and senile cortical atrophy. No significant interval changes since the previous study. --Ammonia: 154 >> 57 --Alcohol level negative Continue lactulose to titrate for 3 good BMs per day Patient could not afford rifaximin due to cost per record Mental status back to baseline Will advised to follow-up with GI as outpatient Monitor CBC Asymptomatic bacteriuria Recent UTI completed treatment Monitor for now Hypertensive urgency Likely situational Continue atenolol Also on Lasix Blood pressure stable today Monitor Transient hypoxemia Resolved Saturating well on room air Hyperlipidemia Continue statin Bronchial asthma No signs of exacerbation Monitor DM II Hold p.o. meds Last HbA1c 5.4 Continue insulin per protocol Monitor blood glucose levels Hypothyroidism Continue levothyroxine Possible functional disability given recurrent admissions PT OT prior to discharge DVT Px: SCDs Re: Thrombocytopenia CODE STATUS DNI/DNR Admission and Anticipated Discharge Date Admission Date: May 26, 2025 Subjective Patient is seen and examined at bedside Mental status seems to be back to baseline Denies any dizziness, nausea, vomiting, chest pain, dyspnea, abdominal pain Had bowel movements after starting lactulose Tolerating diet No other complaints Review of Systems Review of Systems: All systems reviewed & are unremarkable except as noted in Subjective Physical Exam Physical Exam: Physical Exam: Vitals signs as noted above General Appearance:Obese, no apparent distress Head: normocephalic, Atraumatic, +poor dentition Eyes: normal inspection, EOMI Neck: supple, Trachea midline Respiratory/Chest: Decreased breath sounds, CTA, No accessory muscle use Cardiovascular: S1, S2, No murmur Abdomen/GI:Soft, Non tender, Bowel sounds present Extremities/Musculoskeletal:normal inspection, 1+ LE edema, +Venous stasis changes Neurologic/Psych:AAOX3, grossly no focal neurological deficits,+ some dysarthria Skin: normal color, warm Results & Data Results & Data Vital Signs (Past 12 Hours) Vital Signs Temp Pulse Pulse Pulse Resp BP BP 05/27/25 07:45 36.5 C 76 18 119/82 05/27/25 06:30 76 111/70 05/27/25 03:10 36.5 C 77 20 144/77 H 05/27/25 02:30 81 20 134/88 05/27/25 01:30 76 18 135/63 05/27/25 01:17 138/63 05/27/25 01:17 74 18 138/63 05/27/25 00:38 77 20 134/71 05/27/25 00:01 78 18 182/98 H 05/26/25 23:28 78 05/26/25 23:01 78 16 148/82 H Pulse Ox O2 Del Method 05/27/25 07:45 97 Room Air 05/27/25 06:30 05/27/25 03:10 96 Room Air 05/27/25 02:30 96 Room Air 05/27/25 01:30 95 Room Air 05/27/25 01:17 05/27/25 01:17 96 Room Air 05/27/25 00:38 95 Room Air 05/27/25 00:01 96 Room Air 05/26/25 23:28 05/26/25 23:01 96 Laboratory Results Short CBC 05/26/25 05/27/25 Range/Units 19:44 06:34 WBC 3.55 L 2.98 L (4.8-10.8) K/ul Hgb 12.7 12.9 (12.0-16.0) g/dl Hct 37.1 36.9 L (37.0-47.0) % Plt Count 69 L 71 L (130-400) K/uL BMP 05/26/25 05/27/25 19:44 06:34 Sodium 143 145 Potassium 3.8 3.8 Chloride 111 H 114 H Carbon Dioxide 26 26 BUN 20 14 Creatinine 0.75 0.62 Glucose 114 H 116 H Calcium 9.3 8.9 Liver Function 05/26/25 05/27/25 Range/Units 19:44 06:34 Total Bilirubin 1.5 H 1.4 H (0.2-1.0) mg/dl AST 32 37 (13-39) U/L ALT 24 27 (7-52) U/L Alkaline Phosphatase 81 71 (34-104) U/L Albumin 3.3 L 3.3 L (3.4-5.0) gm/dl Urine 05/26/25 Range/Units 22:29 Urine Color Yellow Urine Appearance Clear (Clear) Urine pH >= 9.0 H (4.5-7.5) Ur Specific [place] 1.009 (1.000-1.030) Urine Protein Negative (Negative) Urine Glucose (UA) Negative (Negative)
[2025-05-27] MEDS: GABAPENTIN 100 MG CAP PO SCH (20:49)
[2025-05-27] MEDS: DICLOFENAC SOD 1% GEL 100 GM TUBE EXT SCH (20:50)
[2025-05-28 06:34] LABS: Hematocrit (blood only) 37.8 % (37.0-47.0); Hemoglobin 12.7 g/dl (12.0-16.0); Mean Corpuscular Hemoglobin 33.0 pg (25.0-34.0); Mean Corpuscular Volume 98.2 fL (80.0-100.0); Platelet Count 69 K/uL (130-400); RDW Standard Deviation 51.9 fL (36.4-46.3); Red Blood Count 3.85 M/uL (4.20-5.40); White Blood Count 3.69 K/ul (4.8-10.8)
[2025-05-28 07:07] LABS: Anion Gap 6.0 (3-11); Blood Urea Nitrogen 17.0 mg/dl (6-23); Calcium 9.0 mg/dl (8.6-10.3); Carbon Dioxide 25.0 mmol/L (21-32); Chloride 112.0 mmol/L (98-107); Creatinine Clr Calc Pharmacy 75.1 ml/min; Glucose 115.0 mg/dl (70-99(Fasting)); Magnesium 1.8 mg/dl (1.7-2.4); Potassium 4.3 mmol/L (3.5-5.1); Sodium 143.0 mmol/L (136-145)
[2025-05-28] MEDS: ATENOLOL 50 MG TABLET PO SCH (09:28)
--- NOTE | 2025-05-28 11:19 | Hospitalist Progress Note ---
Date of Service May 28, 2025 Assessment & Plan (1) Encephalopathy: Plan: Acute hepatic encephalopathy Leukopenia, thrombocytopenia due to liver disease Noncompliance H/O NAFLD Cirrhosis Constipation--resolved -- CT head:No acute abnormality detected on plain CT head. Chronic microvascular ischemic changes and senile cortical atrophy. No significant interval changes since the previous study. --Ammonia: 154 >> 57 --Alcohol level negative Continue lactulose to titrate for 3 good BMs per day Patient could not afford rifaximin due to cost per record Mental status back to baseline Will advised to follow-up with GI as outpatient Monitor CBC PT OT eval requested May need rehab placement Asymptomatic bacteriuria Recent UTI completed treatment Monitor for now Hypertensive urgency Likely situational Continue atenolol Also on Lasix Blood pressure stable Monitor Transient hypoxemia Resolved Saturating well on room air Hyperlipidemia Continue statin Bronchial asthma No signs of exacerbation Monitor DM II Hold p.o. meds Last HbA1c 5.4 Continue insulin per protocol Monitor blood glucose levels Hypothyroidism Continue levothyroxine Possible functional disability given recurrent admissions Case management to help with discharge planning DVT Px: SCDs Re: Thrombocytopenia CODE STATUS DNI/DNR Disposition May need rehab placement Admission and Anticipated Discharge Date Admission Date: May 26, 2025 Subjective Patient is seen and examined at bedside States feeling well today Offers no new complaints Denies any dizziness, nausea, vomiting, chest pain, dyspnea, abdominal pain Review of Systems Review of Systems: All systems reviewed & are unremarkable except as noted in Subjective Physical Exam Physical Exam: Physical Exam: Vitals signs as noted above General Appearance:Obese, no apparent distress Head: normocephalic, Atraumatic, +poor dentition Eyes: normal inspection, EOMI Neck: supple, Trachea midline Respiratory/Chest: Decreased breath sounds, CTA, No accessory muscle use Cardiovascular: S1, S2, No murmur Abdomen/GI:Soft, Non tender, Bowel sounds present Extremities/Musculoskeletal:normal inspection, 1+ LE edema, +Venous stasis changes Neurologic/Psych:AAOX3, grossly no focal neurological deficits,+ some dysarthria Skin: normal color, warm Results & Data Results & Data Vital Signs (Past 12 Hours) Vital Signs Temp Pulse Pulse Resp BP Pulse Ox O2 Del Method 05/28/25 10:42 36.6 C 71 18 110/63 96 Room Air 05/28/25 07:37 70 05/28/25 07:30 36.3 C L 70 16 120/73 94 Room Air 05/28/25 03:39 36.8 C 73 20 129/76 92 Room Air Laboratory Results Short CBC 05/28/25 Range/Units 06:07 WBC 3.69 L (4.8-10.8) K/ul Hgb 12.7 (12.0-16.0) g/dl Hct 37.8 (37.0-47.0) % Plt Count 69 L (130-400) K/uL BMP 05/28/25 06:07 Sodium 143 Potassium 4.3 Chloride 112 H Carbon Dioxide 25 BUN 17 Creatinine 0.73 Glucose 115 H Calcium 9.0
[2025-05-29 08:59] LABS: Hematocrit (blood only) 39.2 % (37.0-47.0); Hemoglobin 13.7 g/dl (12.0-16.0); Mean Corpuscular Hemoglobin 34.0 pg (25.0-34.0); Mean Corpuscular Volume 97.3 fL (80.0-100.0); Platelet Count 86 K/uL (130-400); RDW Standard Deviation 50.4 fL (36.4-46.3); Red Blood Count 4.03 M/uL (4.20-5.40); White Blood Count 4.35 K/ul (4.8-10.8)
[2025-05-29 09:17] LABS: Anion Gap 3.0 (3-11); Blood Urea Nitrogen 18.0 mg/dl (6-23); Calcium 9.1 mg/dl (8.6-10.3); Carbon Dioxide 29.0 mmol/L (21-32); Chloride 109.0 mmol/L (98-107); Creatinine Clr Calc Pharmacy 75.2 ml/min; Glucose 116.0 mg/dl (70-99(Fasting)); Magnesium 1.7 mg/dl (1.7-2.4); Potassium 4.2 mmol/L (3.5-5.1); Sodium 141.0 mmol/L (136-145)
[2025-05-29] MEDS: MAGNESIUM CHLORIDE W/CALCIUM 64MG DELAYED REL TAB PO SCH (11:15)
[2025-05-29] MEDS: PROMETHAZINE 6.25 MG/50.25 ML BAG IV PRN (11:15)
--- NOTE | 2025-05-29 12:10 | XRay Report ---
KUB HISTORY: nausea, Vomiting COMPARISON STUDY: 05/26/2025 FINDINGS: There is mild to moderate retained stool. No bowel obstruction seen. No gross free air. IMPRESSION: No acute findings. ACT 112: Negative or not required by law. The above report was generated using voice recognition software. It may contain grammatical, syntax o r spelling errors. Electronically signed by: Nicola Motley M.D. 05/29/2025 12:09 PM
[2025-05-29] MEDS: SODIUM CHLORIDE 0.9% 1,000 ML IV ONE (12:39)
--- NOTE | 2025-05-29 12:42 | Hospitalist Progress Note ---
Date of Service May 29, 2025 Assessment & Plan (1) Encephalopathy: Plan: Acute hepatic encephalopathy Pancytopenia due to liver disease Noncompliance H/O NAFLD Cirrhosis Constipation--resolved -- CT head:No acute abnormality detected on plain CT head. Chronic microvascular ischemic changes and senile cortical atrophy. No significant interval changes since the previous study. --Ammonia: 154 >> 57 --Alcohol level negative Continue lactulose to titrate for 3 good BMs per day Patient could not afford rifaximin due to cost per record Mental status back to baseline Will advised to follow-up with GI as outpatient Monitor CBC PT OT eval: Recommends rehab placement Nausea, vomiting today likely due to lactulose KUB showed no acute process IV fluids as needed Monitor Asymptomatic bacteriuria Recent UTI completed treatment Monitor for now Hypertensive urgency--resolved Likely situational Continue atenolol Also on Lasix Monitor BP Transient hypoxemia Resolved Saturating well on room air Hyperlipidemia Continue statin Bronchial asthma No signs of exacerbation Monitor DM II Hold p.o. meds Last HbA1c 5.4 Continue insulin per protocol Monitor blood glucose levels Hypothyroidism Continue levothyroxine Possible functional disability given recurrent admissions Case management to help with discharge planning DVT Px: SCDs Re: Thrombocytopenia CODE STATUS DNI/DNR Disposition Rehab when accepted Admission and Anticipated Discharge Date Admission Date: May 26, 2025 Subjective Patient is seen and examined at bedside Had an episode of nausea/vomiting this morning KUB showed no acute process Patient denied any chest pain, dyspnea, abdominal pain Review of Systems Review of Systems: All systems reviewed & are unremarkable except as noted in Subjective Physical Exam Physical Exam: Physical Exam: Vitals signs as noted above General Appearance:Obese, no apparent distress Head: normocephalic, Atraumatic, +poor dentition Eyes: normal inspection, EOMI Neck: supple, Trachea midline Respiratory/Chest: Decreased breath sounds, CTA, No accessory muscle use Cardiovascular: S1, S2, No murmur Abdomen/GI:Soft, Non tender, Bowel sounds present Extremities/Musculoskeletal:normal inspection, 1+ LE edema, +Venous stasis changes Neurologic/Psych:AAOX3, grossly no focal neurological deficits,+ some dysarthria Skin: normal color, warm Results & Data Results & Data Vital Signs (Past 12 Hours) Vital Signs Temp Pulse Pulse Resp BP BP Pulse Ox 05/29/25 12:07 36.9 C 81 18 99/62 L 98 05/29/25 11:45 05/29/25 11:29 36.5 C 62 17 117/76 97 05/29/25 08:22 36.3 C L 67 17 114/63 96 05/29/25 08:05 67 05/29/25 03:48 36.6 C 80 20 116/76 95 O2 Del Method O2 Flow Rate 05/29/25 12:07 Nasal Cannula 2 05/29/25 11:45 Room Air 05/29/25 11:29 Room Air 05/29/25 08:22 Room Air 05/29/25 08:05 05/29/25 03:48 Room Air Laboratory Results Short CBC 05/29/25 Range/Units 08:13 WBC 4.35 L (4.8-10.8) K/ul Hgb 13.7 (12.0-16.0) g/dl Hct 39.2 (37.0-47.0) % Plt Count 86 L (130-400) K/uL BMP 05/29/25 08:13 Sodium 141 Potassium 4.2 Chloride 109 H Carbon Dioxide 29 BUN 18 Creatinine 0.73 Glucose 116 H Calcium 9.1
[2025-05-30 07:09] VITALS: BP 156/97; RESP 18; TEMP 97.9; O2SAT 96
[2025-05-30 07:47] VITALS: PULSE 79
--- NOTE | 2025-05-30 09:13 | Hospitalist Progress Note ---
Date of Service May 30, 2025 Assessment & Plan (1) Encephalopathy: Plan: Acute hepatic encephalopathy Pancytopenia due to liver disease Noncompliance H/O NAFLD Cirrhosis Constipation--resolved -- CT head:No acute abnormality detected on plain CT head. Chronic microvascular ischemic changes and senile cortical atrophy. No significant interval changes since the previous study. --Ammonia: 154 >> 57 --Alcohol level negative Continue lactulose to titrate for 3 good BMs per day Patient could not afford rifaximin due to cost per record Mental status back to baseline Advised to follow-up with GI as outpatient Monitor CBC PT OT eval: Recommends rehab placement Plan to discharge to rehab facility today Asymptomatic bacteriuria Recent UTI completed treatment Monitor for now Hypertensive urgency--resolved Likely situational Continue atenolol Also on Lasix Monitor BP Transient hypoxemia Resolved Saturating well on room air Hyperlipidemia Continue statin Bronchial asthma No signs of exacerbation Monitor DM II Hold p.o. meds Last HbA1c 5.4 Continue insulin per protocol Monitor blood glucose levels Hypothyroidism Continue levothyroxine Possible functional disability given recurrent admissions Case management to help with discharge planning DVT Px: SCDs Re: Thrombocytopenia CODE STATUS DNI/DNR Disposition Rehab Admission and Anticipated Discharge Date Admission Date: May 26, 2025 Subjective Patient is seen and examined at bedside States feeling well weak today No other complaints No recurrence of nausea, vomiting Patient denied any chest pain, dyspnea, abdominal pain Plan to be discharged to rehab facility today Review of Systems Review of Systems: All systems reviewed & are unremarkable except as noted in Subjective Physical Exam Physical Exam: Physical Exam: Vitals signs as noted above General Appearance:Obese, no apparent distress Head: normocephalic, Atraumatic, +poor dentition Eyes: normal inspection, EOMI Neck: supple, Trachea midline Respiratory/Chest: Decreased breath sounds, CTA, No accessory muscle use Cardiovascular: S1, S2, No murmur Abdomen/GI:Soft, Non tender, Bowel sounds present Extremities/Musculoskeletal:normal inspection, 1+ LE edema, +Venous stasis changes Neurologic/Psych:AAOX3, grossly no focal neurological deficits,+ some dysarthria Skin: normal color, warm Results & Data Results & Data Vital Signs (Past 12 Hours) Vital Signs Temp Pulse Pulse Resp BP BP Pulse Ox 05/30/25 07:46 79 05/30/25 07:08 36.6 C 77 18 156/97 H 96 05/30/25 02:57 36.5 C 72 16 107/58 L 95 05/29/25 23:27 36.6 C 75 16 144/76 H 96 05/29/25 21:57 68 O2 Del Method 05/30/25 07:46 05/30/25 07:08 Room Air 05/30/25 02:57 Room Air 05/29/25 23:27 Room Air 05/29/25 21:57
--- NOTE | 2025-05-30 11:57 | Discharge Summary ---
Date of Service May 30, 2025 Admission HPI Per Admitting Provider History obtained from patient and records. Patient is a fair historian. Medical history significant for hypertension, hyperlipidemia, bronchial asthma, NAFLD cirrhosis, GERD, DM2 on oral medications, hypothyroidism, chronic neutropenia/thrombocytopenia, migraine, mood disorder. Monthly admissions since February,. Recent confinement last month for complicated UTI and hepatic encephalopathy. Last outpatient PCP visit was May,. Patient without bowel movement for about a week. No abdominal pain. Nausea symptoms without chest pain, SOB, cough. Patient feeling confused. Denies headache symptoms. Denies bleeding concerns at home. Admits to not taking lactulose regularly because she does not like the taste. Patient cannot afford past Xifaxan Rx. Highest SBP of 180s documented at the ER. Transient O2 sats of 80s noted at the ER. Patient feels much better after IVF administered at the ER. Medical History as above Surgical History : Vitrectomy, cholecystectomy, trabeculoplasty, cataract surgeries, tonsillectomy/adenectomy, femoral fracture surgery, ORTEGA Family History : Unknown as patient was adopted Personal/Social history : Non-smoker, no EtOH intake, disabled, lives by herself Admission Exam Per Admitting Provider GENERAL: Oriented to place, slightly uncomfortable, obese, dysarthric (chronic as per patient), no respiratory distress SKIN: Normal color, warm HEENT: [place] palpebral conjunctivae, no ptosis, dry buccal mucosa, edentulous, NECK : Supple, no tenderness CHEST : Decreased breath sounds, no tenderness HEART : RRR, no obvious murmurs ABDOMEN: Some distention, nontender EXTREMITIES : Minimal LE swelling, no LE tenderness, palpable pulses, no other conspicuous deformities noted NEUROLOGIC : Oriented to place, no facial asymmetry, chronic dysarthria as per patient, gait and stance not assessed Principal Diagnosis Acute hepatic encephalopathy Pancytopenia Medication Noncompliance Discharge Data Allergies Allergy/AdvReac Type Severity Reaction Status Date / Time Hydantoins Allergy Unknown Unknown - Unverified 05/27/25 00:25 On file w/ [facility] phenytoin Allergy Unknown fever and Verified 05/27/25 00:25 rash perflutren [From Definity] AdvReac Severe severe Verified 05/27/25 00:25 back pain indomethacin AdvReac Unknown CHF Verified 05/27/25 00:25 Procedures Performed Laboratory Results WBC 4.35 K/ul (4.8-10.8) L 05/29/25 08:13 RBC 4.03 M/uL (4.20-5.40) L 05/29/25 08:13 Hgb 13.7 g/dl (12.0-16.0) 05/29/25 08:13 Hct 39.2 % (37.0-47.0) 05/29/25 08:13 MCV 97.3 fL (80.0-100.0) 05/29/25 08:13 MCH 34.0 pg (25.0-34.0) 05/29/25 08:13 MCHC 34.9 g/dL (32.0-36.0) 05/29/25 08:13 RDW Std Deviation 50.4 fL (36.4-46.3) H 05/29/25 08:13 RDW Coeff of Diana 14.1 % (11.5-14.5) 05/29/25 08:13 Plt Count 86 K/uL (130-400) L 05/29/25 08:13 MPV 10.7 fL (9.4-12.4) 05/29/25 08:13 Immature Gran % (Auto) 0.3 % 05/27/25 06:34 Neut % (Auto) 62.1 % 05/27/25 06:34 Lymph % (Auto) 21.1 % 05/27/25 06:34 Ogle % (Auto) 12.1 % 05/27/25 06:34 Eos % (Auto) 3.4 % 05/27/25 06:34 Baso % (Auto) 1.0 % 05/27/25 06:34 Neut # (Auto) 1.85 K/uL (1.40-6.50) 05/27/25 06:34 Lymph # (Auto) 0.63 K/uL (1.20-3.40) L 05/27/25 06:34 Ogle # (Auto) 0.36 K/uL (0.11-0.59) 05/27/25 06:34 Eos # (Auto) 0.10 K/uL (0.00-0.50) 05/27/25 06:34 Baso # (Auto) 0.03 K/uL (0.00-0.20) 05/27/25 06:34 Immature Gran # (Auto) 0.01 K/uL (0.01-0.20) 05/27/25 06:34 VBG pH 7.43 (7.36-7.41) H 05/27/25 01:37 VBG pCO2 37 mmHg (38-50) L 05/27/25 01:37 VBG pO2 65 mmHg 05/27/25 01:37 VBG HCO3 25 mmol/L 05/27/25 01:37 VBG O2 Saturation 93.3 % 05/27/25 01:37 VBG Base Excess 0.5 mEq/L 05/27/25 01:37 Sodium 141 mmol/L (136-145) 05/29/25 08:13 Potassium 4.2 mmol/L (3.5-5.1) 05/29/25 08:13 Chloride 109 mmol/L (98-107) H 05/29/25 08:13 Carbon Dioxide 29 mmol/L (21-32) 05/29/25 08:13 Anion Gap 3 (3-11) 05/29/25 08:13 BUN 18 mg/dl (6-23) 05/29/25 08:13 Creatinine 0.73 mg/dl (0.6-1.2) 05/29/25 08:13 Est Cr Clr Drug Dosing 75.2 ml/min 05/29/25 08:13 eGFR 87.32 05/29/25 08:13 BUN/Creatinine Ratio 24.7 (10-20) H 05/29/25 08:13 Glucose 116 mg/dl (70-99(Fasting)) H 05/29/25 08:13 POC Glucose 117 mg/dl (70-99) H 05/30/25 07:52 Calcium 9.1 mg/dl (8.6-10.3) 05/29/25 08:13 Magnesium 1.7 mg/dl (1.7-2.4) 05/29/25 08:13 Total Bilirubin 1.4 mg/dl (0.2-1.0) H 05/27/25 06:34 AST 37 U/L (13-39) 05/27/25 06:34 ALT 27 U/L (7-52) 05/27/25 06:34 Alkaline Phosphatase 71 U/L (34-104) 05/27/25 06:34 Ammonia 57.0 umol/L (18-72) 05/27/25 06:34 Troponin I High Sens 4.3 pg/ml (0-14) 05/26/25 19:44 Total Protein 5.9 gm/dl (6.0-8.3) L 05/27/25 06:34 Albumin 3.3 gm/dl (3.4-5.0) L 05/27/25 06:34 Globulin 2.6 gm/dl (2.5-4.0) 05/27/25 06:34 Albumin/Globulin Ratio 1.3 (0.9-2) 05/27/25 06:34 Lipase 63 U/L (11-82) 05/26/25 19:44 Urine Color Yellow 05/26/25: Urine Appearance Clear (Clear) 05/26/25: Urine pH >= 9.0 (4.5-7.5) H 05/26/25 22: Ur Specific [place] 1.009 (1.000-1.030) 05/26/25 22: Urine Protein Negative (Negative) 05/26/25: Urine Glucose (UA) Negative (Negative) 05/26/25: Urine Ketones Negative (Negative) 05/26/25: Urine Blood Trace (Negative) H 05/26/25: Urine Nitrite Negative (Negative) 05/26/25: Urine Bilirubin Negative (Negative) 05/26/25: Urine Urobilinogen Negative (Negative) 05/26/25 22: Ur Leukocyte Esterase Negative (Negative) 05/26/25: Urine WBC (Auto) 0-5 /hpf (0-5) 05/26/25: Urine RBC (Auto) 11-20 /hpf (0-2) H 05/26/25: U Hyaline Cast (Auto) 0-2 /lpf (0-2) 05/26/25: U Epithel Cells (Auto) 0-2 /hpf (0-2) 05/26/25 22: Urine Bacteria (Auto) 1+ (None Seen) H 05/26/25 22: Talc Crystals Present (None Prsent) H 05/26/25: Urine Comment 05/26/25: Ethyl Alcohol mg/dL < 10.0 mg/dl (<10.0) 05/26/25 23:37 Impressions Abdomen/Pelvis CT 05/26/25 20:08 Exam(s): CT ABDOMEN + PELVIS Without Contrast EXAM: CT Abdomen and Pelvis Without Intravenous Contrast CLINICAL HISTORY: Reason for exam: SBO, obstruction. TECHNIQUE: Axial computed tomography images of the abdomen and pelvis without intravenous contrast. CTDI is 28 mGy and DLP is 1456 mGy-cm. Automated exposure control was utilized for the study. A dose lowering technique was utilized adhering to the principles of ALARA. COMPARISON: 04/23/2025 FINDINGS: Lung bases are clear. Gallbladder is surgically absent. There is no biliary dilatation. There is stranding around the head of the pancreas which is nonspecific. Liver appears cirrhotic. There are stigmata of portal hypertension including recanalized umbilical vein, abdominal varices, and splenomegaly. Adrenal glands and kidneys are normal. There is mild atherosclerosis without aortic aneurysm. There is no free air or significant ascites. Uterus is surgically absent. Urinary bladder is normal. There is no bowel obstruction or bowel inflammatory change. Appendix is normal. Bones are demineralized. There has been prior ORIF of the right femur. There is a chronic L3 superior endplate compression fracture and age- related degenerative changes of the lumbar spine. There are no acute osseous findings. IMPRESSION: 1. No evidence of small-bowel obstruction. 2. Cirrhosis and stigmata of portal hypertension. 3. Stranding around the head of the pancreas. This could be secondary to portal hypertension, but correlation with serum lipase is recommended to assess for pancreatitis. Electronically signed by: Augusta Lopez M.D. 05/26/25 22:30 PM Chest X-Ray 05/27/25 00:01 EXAM: XR chest 1V portable CLINICAL HISTORY: low o2 TECHNIQUE: X-ray images of the chest were obtained in a single frontal projection. COMPARISON: Prior X-ray dated 04/23/2025 was used for comparison. FINDINGS: Pulmonary Parenchyma: There is no evidence of consolidation, collapse, or focal opacities. No pulmonary nodules are identified. There is no evidence of pleural effusion or pleural thickening. Heart and Mediastinum: Bilateral hilar prominence and prominent bronchovascular markings are present, which could be due to pulmonary congestion. The heart size and shape are normal. There is no mediastinal widening or masses. No hilar or mediastinal lymphadenopathy is identified. Bony Thorax: The bony thorax appears intact, without fractures or deformities. Degenerative changes are present in the bilateral shoulder joints. Soft Tissues: The soft tissues overlying the chest wall are unremarkable. IMPRESSION: 1. There is no evidence of consolidation, collapse, or focal opacities. 2. Bilateral hilar prominence and prominent bronchovascular markings are present, which could be due to pulmonary congestion. 3. No interval changes. Electronically signed by Miguel Ángel Wooten 05-27-2025 08:[address] 05/27/25 00:22 EXAM: CT head/brain wo con CLINICAL HISTORY: ams, dysarthria. TECHNIQUE: Axial non-contrast CT scan of the brain was performed from the skull base to the high parietal region. One of the following dose reduction techniques was utilized for this exam: automated exposure control, adjustment of the mA and/or kV according to patient size, or use of iterative reconstruction. COMPARISON: 04/23/2025 CT. FINDINGS: Brain Parenchyma: There are ill-defined iso- to hypodense areas in the subcortical and periventricular white matter bilaterally, representing chronic microvascular ischemic changes. The remainder of the visualized brain parenchyma shows a normal appearance. No intracerebral or extra-axial hematoma. Ventricular System: Prominent ventricular system. Subarachnoid Spaces: The cortical sulci and basal cisterns are prominent, consistent with senile changes. Cerebellum and Brainstem: No masses, lesions, or areas of abnormal density. Orbits: Normal appearance of the globes, optic nerves, and extraocular muscles. No evidence of orbital masses or abnormal density. Visualized Paranasal Sinuses: Mild mucosal thickening in the bilateral maxillary sinuses. Mild right-sided nasal septal deviation. Mastoid Air Cells: Clear mastoid air cells. Skull and Soft Tissue: Normal skull morphology. IMPRESSION: 1. No acute abnormality detected on plain CT head. 2. Chronic microvascular ischemic changes and senile cortical atrophy. 3. No significant interval changes since the previous study. Electronically signed by Miguel Ángel Wooten 05-27-2025 01:56 AM KUB X-Ray 05/29/25 10:55 KUB HISTORY: nausea, Vomiting COMPARISON STUDY: 05/26/2025 FINDINGS: There is mild to moderate retained stool. No bowel obstruction seen. No gross free air. IMPRESSION: No acute findings. ACT 112: Negative or not required by law. The above report was generated using voice recognition software. It may contain grammatical, syntax or spelling errors. Electronically signed by: Nicola Motley M.D. 05/29/2025 12:09 PM Ordered Studies 05/26/25 20:08 CT Abd and Pelvis [CT abd pelvis wo con] Stat 05/27/25 00:22 CT head/brain wo con Stat Hospital Course (1) Encephalopathy: Acute hepatic encephalopathy Pancytopenia due to liver disease Noncompliance H/O NAFLD Cirrhosis Constipation--resolved -- CT head:No acute abnormality detected on plain CT head. Chronic microvascular ischemic changes and senile cortical atrophy. No significant interval changes since the previous study. --Ammonia: 154 >> 57 --Alcohol level negative Continue lactulose to titrate for 3 good BMs per day Patient could not afford rifaximin due to cost per record Mental status back to baseline Advised to follow-up with GI as outpatient Monitor CBC PT OT eval: Recommends rehab placement Plan to discharge to rehab facility today Asymptomatic bacteriuria Recent UTI completed treatment Monitor for now Hypertensive urgency--resolved Likely situational Continue atenolol Also on Lasix Monitor BP Transient hypoxemia Resolved Saturating well on room air Hyperlipidemia Continue statin Bronchial asthma No signs of exacerbation Monitor DM II Hold p.o. meds Last HbA1c 5.4 Continue insulin per protocol Monitor blood glucose levels Hypothyroidism Continue levothyroxine Possible functional disability given recurrent admissions Case management to help with discharge planning DVT Px: SCDs Re: Thrombocytopenia CODE STATUS DNI/DNR Disposition Rehab Total Time Total Time Spent Total Time Spent (In Minutes): 51 minutes Discharge Plan Discharge Items Patient Disposition: Transfer Inpatient Rehab Fac Reason For Visit: RESP FAILURE, HEPATIC ENCEPHALOPATHY Discharge Diagnosis: Acute hepatic encephalopathy Pancytopenia Medication Noncompliance Condition on Discharge: Fair Activity: Resume your previous activity Exercise/Sports: Gradually increase as tolerated Non-emergency contact: Primary Care Provider Call non-emergency contact if: you have any medication questions, your symptoms worsen, your pain is concerning for you and you have a fever Follow-up/Referrals: Juan Heck MD [Primary Care Provider] - Diet: Carb Consistent or DM2 and Heart Healthy Addtl Attending Provider Instructions: -- Follow-up with your primary care physician Dr. Heck in 1 week upon discharge from rehab facility --Consider following with your customer service sales consultant as recommended Seek immediate medical attention if your symptoms reoccur or worsen Please review medication list provided on discharge for any medication changes as instructed. Please call if you have any questions or problems. You can reach a [facility] hospitalist on duty at [facility] 24 hours a day by calling [phone] Pending Studies at Discharge: No Stand-Alone Forms: My [facility], Smoking Cessation Skilled Items Patient informed of condition?: Yes DNR: Yes Discharge Level of Care: Acute rehab Communicable Disease: No Discharge Prognosis: Stable Lines: None Urinary Catheter: No Medications and DC Order Prescriptions: Continued levothyroxine 100 mcg tablet 100 mcg PO DAILYBB Rx Instructions: take at least 30 minutes prior to breakfast or other meds montelukast 10 mg tablet 10 mg PO QAM fluticasone propionate 50 mcg/actuation spray,suspension 2 spray INTRANASAL DAILY calcium carbonate-vitamin D3 [Calcium 600 + D(3)] 600 mg-5 mcg (200 unit) Capsule 1 cap PO HS Patient Comments: 04/23- otc unable to verify cholecalciferol (vitamin D3) [Vitamin D3] 25 mcg (1,000 unit) Tablet 25 mcg PO DAILY Patient Comments: 04/23- otc unable to verify naproxen 250 mg Tablet 500 mg PO BID PRN (Reason: Pain) Patient Comments: allopurinol 100 mg tablet 200 mg PO AMHS rosuvastatin 10 mg tablet 10 mg PO QAM Rybelsus 7 mg tablet 7 mg PO DAILYBB gabapentin 100 mg capsule 100 mg PO HS Patient Comments: 04/23-last filled 03/16 30 day supply #30 Slow-Mag 71.5 mg tablet,delayed release (DR/EC) 71.5 mg PO DAILY Qty: 30 0RF potassium chloride 10 mEq tablet extended release 10 meq PO DAILY Qty: 30 0RF furosemide 20 mg tablet 20 mg PO QAM atenolol 100 mg tablet 150 mg PO QAM pantoprazole 40 mg tablet,delayed release (DR/EC) 40 mg PO DAILYBB polyethylene glycol 3350 [Miralax] 17 gram Powder In Packet 17 g PO DAILY Qty: 30 0RF Patient Comments: lactulose 10 gram/15 mL Solution 20 g PO TID Qty: 946 0RF Discharge Orders: Discharge Order (Routine); Ordered 05/30/25 Ordered By: Syed Patel Admission Data Admit Date/Time: 05/26/25 23:59 Attending Provider: Syed Patel Admit Provider: Conor Carvajal Primary Care Provider: Juan Heck Other Providers: [facility]
== END 2025-05-30 13:13 | DRG 442 ==
LOC: ED 19:06 → 2S 23:59 → 2N 05-27 18:09